=== PATIENT | female | born 1965 | race American Indian/Alaskan Native ===

== ENCOUNTER → 2018-08-18 | Outpatient (CLI) | payer OTHER ==
[~2018-08-18] MED LIST: ASCO500 PO; ASPI81EC PO; Advil200 M1 PO; BENZ100A PO; BLACK COHOSH PO; CHLO4 PO; DOXY100 PO; EPIN.3I IM; FISH1000 PO; Glucagon Emergen1 MG IJ; INS70/30PN SUBQ; INSULANI SUBQ; INSULANPEN; LISI5 PO; MELO7.5 PO; METF500 PO; MULVITB&C PO; MULVITMIND PO; NIAC250ER PO; OXYACE5T PO; POTASSIUM GLUCONATE PO; PRAV20 PO; PROM25 PO; PSEU120ER PO; SUMA6I PO; TYLECOD3 PO; VALERIAN; VIIBRYD PO
== END ==
LOC: LAB 19:03 → LAB SHORT 19:03
PROVIDERS: Nurse Practitioner Family
DX: Z01.419 Encounter for gynecological examination (general) (routine) without abnormal findings (principal)
CPT/HCPCS: G0145

== ENCOUNTER 2023-12-15 08:43 | Day surgery (SDC) | payer OTHER ==
[~2023-12-15] VITALS: Ht 165.1 cm; Wt 95.0 kg
[2023-12-15] MEDS ORDERED: CeFAZolin Sodium 2,000 MG VIAL ONE (09:03)
[2023-12-15] MEDS ORDERED: NS 50 ML IV ONE (09:03)
[2023-12-15] MEDS ORDERED: NS 1,000 ML IV ONE (09:04)
[2023-12-15] MEDS ORDERED: Lactated Ringer's 1,000 ML IV ONE (09:15)
[2023-12-15] MEDS ORDERED: Crestor40 MG (09:20)
[2023-12-15] MEDS ORDERED: BUSP5 (09:21)
[2023-12-15] MEDS ORDERED: ESCI10 (09:23)
[2023-12-15] MEDS ORDERED: GABA300 (09:25)
[2023-12-15] MEDS ORDERED: LORA.5 (09:25)
[2023-12-15] MEDS ORDERED: ACET500 (09:26)
[2023-12-15] MEDS ORDERED: CENTRUM SILVER1 EAC2 (09:27)
[2023-12-15] MEDS ORDERED: HUMALOG100 UNIT/1 (09:27)
[2023-12-15] MEDS ORDERED: Citric Acid/Sodium Citrate 30 ML BTL ONE (09:28)
[2023-12-15] MEDS ORDERED: propofoL 20 ML IV ONE (09:34)
[2023-12-15] MEDS ORDERED: Midazolam HCL 1 MG/ML 5MLVIAL ONE (09:34)
[2023-12-15] MEDS ORDERED: Ketamine HCl 100 MG / ML 5ML Vial ONE (09:35)
[2023-12-15] MEDS ORDERED: Glycopyrrolate 0.2 MG/ML 5ML VIAL ONE (09:35)
[2023-12-15] MEDS ORDERED: FentaNYL Citrate 50 MCG/ML 2 ML Injection ONE ×2 (09:39→11:35)
[2023-12-15] MEDS ORDERED: Ropivacaine 0.5% HCL/PF 5 MG/ML 30ML Vial ONE (09:42)
[2023-12-15] MEDS ORDERED: Phenylephrine HCl 100 MCG/ML-NS 10MLSYR (1MG/10ML) ONE (09:59)
--- NOTE | 2023-12-15 10:19 | NUR ---
12/15/23 1019 Vashti Hobson 0.15ML OF EPI (1MG/ML) ADDED TO 30MG OF 0.5% ROPIVACAINE TO MAKE ROPIVACAINE 0.5% WITH EPI 1:200,000 ON FIELD.
[2023-12-15] MEDS ORDERED: Ropivacaine 0.5% HCl/Pf 5 MG/ML 20ML VIAL INJ ONE ×2 (10:23)
[2023-12-15] MEDS ORDERED: EPINEPhrine HCl 1 MG/ML 1ML Amp XX ONE (10:24)
[2023-12-15] MEDS ORDERED: Ondansetron HCl 2 MG / ML 2ML Vial ONE ×2 (11:02→11:50)
[2023-12-15] MEDS ORDERED: Ketorolac Tromethamine 30mg Vial ONE (11:07)
[2023-12-15 12:05] VITALS: BP 140/61
== END 2023-12-15 12:39 | disposition home or self-care (01) ==
LOC: ORSCSDS 08:43
PROVIDERS: Orthopaedic Surgery
PROC: 01N50ZZ Release Median Nerve, Open Approach (ICD-10-PCS; principal; 2023-12-15 10:00)
PROC: 01N40ZZ Release Ulnar Nerve, Open Approach (ICD-10-PCS; principal; 2023-12-15 10:00)
PROC: 0LN70ZZ Release Right Hand Tendon, Open Approach (ICD-10-PCS; principal; 2023-12-15 10:00)
DX: G56.23 Lesion of ulnar nerve, bilateral upper limbs (principal); G56.03 Carpal tunnel syndrome, bilateral upper limbs; M65.321 Trigger finger, right index finger; E11.9 Type 2 diabetes mellitus without complications; E78.00 Pure hypercholesterolemia, unspecified; F41.9 Anxiety disorder, unspecified; F32.A Depression, unspecified; Z79.4 Long term (current) use of insulin; Z79.899 Other long term (current) drug therapy; Z87.891 Personal history of nicotine dependence
CPT/HCPCS: A9270; J0171; J0690; J1885; J2250; J2371; J2405; J2704; J2795; J3010; J7030; J7120

== ENCOUNTER 2024-02-02 07:56 | Day surgery (SDC) | payer OTHER ==
[~2024-02-02] VITALS: Ht 165.1 cm; Wt 97.3 kg
[~2024-02-02 07:56] MED LIST changes: +ACET500; +BUSP5; +CENTRUM SILVER1 EAC2; +Crestor40 MG; +ESCI10; +GABA300; +HUMALOG100 UNIT/1; +LORA.5; +Lactated Ringer's 1,000 ML IV ONE
[2024-02-02] MEDS ORDERED: HUMALOG PUMP (08:38)
[2024-02-02] MEDS ORDERED: propofoL 20 ML IV ONE (08:55)
[2024-02-02] MEDS ORDERED: FentaNYL Citrate 50 MCG/ML 2 ML Injection ONE ×2 (08:55→11:51)
[2024-02-02] MEDS ORDERED: Midazolam HCl 1MG / ML 2ML Vial ONE (08:55)
[2024-02-02] MEDS ORDERED: NS 50 ML IV ONE (09:08)
[2024-02-02] MEDS ORDERED: CeFAZolin Sodium 2,000 MG VIAL ONE (09:08)
[2024-02-02] MEDS ORDERED: Lactated Ringer's 1,000 ML IV ONE (09:20)
[2024-02-02] MEDS ORDERED: Ropivacaine 0.5% HCL/PF 5 MG/ML 30ML Vial ONE (09:32)
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
--- NOTE | 2024-02-02 10:10 | NUR ---
02/02/24 1010 Vashti Hobson 0.15 ML PF EPI (1MG/ML) ADDED TO ROPIVACAINE 0.5% (150MG/30ML) TO MAKE ROPIVACAINE 0.5% WITH EPI 1:200,000 ON FIELD.
[2024-02-02] MEDS ORDERED: EPINEPhrine HCl 1 MG/ML 1ML Amp XX ONE ×2 (10:14)
--- NOTE | 2024-02-02 11:23 | NUR ---
02/02/24 1123 MICHAELA KIRBY TRIAL OFF O2. PT WAKES EASILY. CONT TO DENY PAIN IN LEFT ARM. THROAT PAINFUL. NO NAUSEA. IS NOT CHILLED, DECLINES WARM BLANKET.
--- NOTE | 2024-02-02 11:37 | NUR ---
02/02/24 1137 MICHAELA KIRBY ON. GOYO TECH IN TO ASSIST WITH PT/TRANSFER
[2024-02-02] MEDS ORDERED: HYDROcodone 5-APAP 325 TAB ONE (11:51)
[2024-02-02 12:04] VITALS: BP 147/95
== END 2024-02-02 12:44 | disposition home or self-care (01) ==
LOC: ORSCSDS 07:56
PROVIDERS: Orthopaedic Surgery
PROC: 01N40ZZ Release Ulnar Nerve, Open Approach (ICD-10-PCS; principal; 2024-02-02 09:45)
DX: G56.22 Lesion of ulnar nerve, left upper limb (principal); E11.42 Type 2 diabetes mellitus with diabetic polyneuropathy; E78.5 Hyperlipidemia, unspecified; Z87.891 Personal history of nicotine dependence; E66.9 Obesity, unspecified; Z68.35 Body mass index [BMI] 35.0-35.9, adult; Z79.899 Other long term (current) drug therapy; F41.9 Anxiety disorder, unspecified; F32.A Depression, unspecified; Z79.4 Long term (current) use of insulin
CPT/HCPCS: 82947; A9270; J0171; J0690; J2250; J2704; J2795; J3010; J7120

== ENCOUNTER → 2025-01-10 | Outpatient (CLI) | payer OTHER ==
[~2025-01-10] MED LIST changes: +HUMALOG PUMP; -Lactated Ringer's 1,000 ML IV ONE
[2025-01-10 16:10] LABS: Creatinine, Urine Random 94.3 mg/dL (27.00-270.00); Microalb/Creat Ratio UR, Rand 32.026 mg/g (0.000-30.000); Microalbumin, Random Urine 30.2 mg/L (0.000-20.000)
== END ==
LOC: LAB 10:50 → LAB SHORT 10:50
PROVIDERS: Internal Medicine Endocrinology, Diabetes & Metabolism
DX: E10.40 Type 1 diabetes mellitus with diabetic neuropathy, unspecified (principal)
CPT/HCPCS: 82043; 82570